=== PATIENT | male | born 1965 | race Caucasian/White ===

== ENCOUNTER 2016-11-09 07:55 | Day surgery (SDC) | payer OTHER ==
[~2016-11-09] VITALS: Ht 180.3 cm; Wt 114.8 kg
[~2016-11-09 07:55] MED LIST: 0.9% Sodium Chloride 1,000 ML IV SCH; PARO10TA2 PO; Sodium Chloride LOK Flush 10 mL Syringe IV PRN; fentaNYL-PF 50 mCg/mL 2 mL Inj IVPUSH PRN
[2016-11-09 08:07] VITALS: BP 127/78; PULSE 82; RESP 17; O2SAT 99
[2016-11-09 08:52] VITALS: BP 121/81; PULSE 70; RESP 16; O2SAT 95
[2016-11-09 09:02] VITALS: BP 111/77; PULSE 85; RESP 16; O2SAT 98
[2016-11-09 09:09] VITALS: BP 109/75; PULSE 96; RESP 16; O2SAT 96
--- NOTE | 2016-11-09 09:21 | ENDO ---
[address] [address] ENDOSCOPY PROCEDURE PATIENT: MOI GOODMAN : 1965 MR#: [id number] ADMIT: 11/09/2016 JOB ID: [id number] DATE: 11/09/2016 PROCEDURE: Colonoscopy. INDICATIONS: Screening. The patient's ASA classification is 2. Mallampati score is 2. MEDICATIONS: 1. Versed 5 mg. 2. Fentanyl 100 mcg. INSTRUMENT USED: PCF H 180 AL. PREPARATION QUALITY: Was fair. PROCEDURE DETAILS: After informed consent was obtained, the patient was brought into the GI suite, where he was placed on oxygen via nasal cannula and monitored with continuous pulse oximeter, telemetry and blood pressure monitoring. A time-out was performed. Then, he was placed in a left lateral decubitus position and medications were administered for sedation. Digital rectal examination with palpation of the prostate was performed and was unremarkable. The colonoscope was then inserted into the rectum, advanced under direct visualization to the cecum, which was identified by the presence of the ileocecal valve and appendiceal orifice. Once the cecum was reached, the colonoscope was withdrawn back into the rectum, and mucosa and lumen were examined. In the rectum, retroflexion was performed. Following retroflexion, remaining air in the rectum was suctioned, and the procedure was completed. FINDINGS: 1. In the cecum there was an approximately 5 mm round, minimally erythematous raised area. Under narrowband imaging this did not have the appearance consistent with an adenoma. Multiple biopsies were obtained of this lesion. 2. In the transverse colon, there was an approximately 5 mm sessile polyp that was removed with a hot snare. 3. In the sigmoid colon, there was an approximately 4 mm polyp that was removed with a hot snare. 4. In the proximal rectum, there was an approximately 5 mm sessile polyp that was removed with a hot snare. 5. At 30 cm there was evidence of previously placed tattoo. The mucosa here other then appearing mildly pale appeared unremarkable. 6. Retroflexed views in the rectum were unremarkable. IMPRESSION: 1. Slightly raised erythematous lesion in the cecum. 2. Transverse colon polyp. 3. Sigmoid polyp. 4. Rectal polyp. 5. Previously placed tattoo at 30 cm. RECOMMENDATIONS: 1. Await pathology results. 2. Followup in GI clinic in 2-4 weeks. COMPLICATIONS: None. ESTIMATED BLOOD LOSS: Less than 5 mL. MTDD
--- NOTE | 2016-11-12 12:20 | PATH ---
SURGICAL PATHOLOGY Attending Physician:Violeta Frank CASE STATUS: Signed Out PATIENT NAME: MOI GOODMAN PID: [id number] : 1965 DATE COLLECTED:11/09/2016 17:07 SPECIMEN: 1: Colon, Biopsy 2: Colon, Biopsy 3: Colon, Biopsy 4: Colon, Biopsy CLINICAL HISTORY: A: CECAL BIOPSY B: TRANSVERSE POLYP C: SIGMOID POLYP D: RECTAL POLYP FINAL DIAGNOSIS: 1.CECAL BIOPSY: FRAGMENTS OF NORMAL-APPEARING COLON MUCOSA. Negative for significant architectural distortion. Negative for significant inflammation, dysplasia and malignancy. 2.TRANSVERSE COLON POLYP: TUBULAR ADENOMA INVOLVING ALL BIOPSY FRAGMENTS. 3.SIGMOID COLON POLYP: CHANGES CONSISTENT WITH HYPERPLASTIC POLYP. 4.RECTAL POLYP: TUBULAR ADENOMA. ICD10 CODE D12.8 GROSS DESCRIPTION: The specimen is received in four formalin filled containers labeled with the patient's name. 1). The specimen is sublabeled "cecal" and consists of 2 portions of tissue which aggregate to 0.4 x 0.3 x 0.2 CM. The specimen is entirely submitted in cassette 1A. 2). The specimen is sublabeled "transverse polyp" and consists of 4 portions of tissue which aggregate to 0.3 x 0.3 x 0.2 CM. The specimen is entirely submitted in cassette 2A. 3). The specimen is sublabeled "sigmoid polyp" and consists of a less than 0.1 CM portion of tissue which is entirely submitted in cassette 3A. 4). The specimen is sublabeled "rectal" and consists of a 0.4 x 0.4 x 0.4 CM portion of tissue which is entirely submitted in cassette 4A. 11/09/2016 DAC MICRO DESCRIPTION: See diagnosis. ICD-9 CODES: CPT CODES: 1: 01520 2: 58136 3: 88378 4: 09533 Electronically Signed Out Moris Leone MD [facility] Pathology [facility], [place] [address] Technical component performed at [facility], [facility] [address], [place], [address]
== END 2016-11-09 23:59 | disposition home or self-care (01) ==
LOC: END 07:55
PROVIDERS: ATTEND Internal Medicine Gastroenterology
DX: Z12.11 Encounter for screening for malignant neoplasm of colon (principal); D12.0 Benign neoplasm of cecum; D12.3 Benign neoplasm of transverse colon; D12.5 Benign neoplasm of sigmoid colon; D12.8 Benign neoplasm of rectum; Z79.899 Other long term (current) drug therapy
CPT/HCPCS: 45380; 45385; J2250; J7030